=== PATIENT | male | born 1955 | race Caucasian/White ===

== ENCOUNTER → 2016-11-20 | Day surgery (SDC) | payer OTHER ==
[~2016-11-20] MED LIST: ASA PO; ASPIRIN EC81 M1 PO; BISA-LAX5 MG PO; DESYREL50 MG PO; DILT-XR240 M1 PO; ELIQUIS5 MG PO; IRON1 TAB PO; MS CONTIN100 MG PO; MSIR15 M1 PO; MULTI VITAMIN1 EACH PO; NAPROSYN-EC500 M1 PO; NEURONTIN600 MG PO; OMEPRAZOLE20 M1 PO; SIMVASTATIN PO; TOPROL XL100 MG PO; VIT B12; VITAL-D RX TABL1 TAB PO; VITAMIN B125000 MCG PO; ZOCOR20 MG PO
--- NOTE | ~2016-11-20 | OR ---
Unit #: [id number] #: [id number] Patient: JANIA SHANE [id number] [address] [place], [place] [address] [id number] O MR#: [id number] NAME: JANIA SHANE ROOM: Date of Procedure: 11/20/2016 Admission Date: 11/20/2016 Surgeon: Juan M Burnham M.D. : 1955 Attending Physician: Juan M Burnhma M.D. Primary Care Physician: Mian Jaime M.D. OPERATIVE REPORT JOB NOTE: CC: [facility] PREOPERATIVE DIAGNOSES Low back pain, lumbar facet disease. POSTOPERATIVE DIAGNOSES Low back pain, lumbar facet disease. PROCEDURE PERFORMED Bilateral L4-5 and L5-S1 facet injections with intravenous sedation and fluoroscopic guidance for needle localization. INDICATIONS FOR PROCEDURE The patient is a 61-year-old male with continued back pain felt to be due to lumbar facet disease. He failed to settle with rehabilitative medical management alone. Plan is for trial of diagnostic and hopefully therapeutic lumbar facet injections. DESCRIPTION OF PROCEDURE The patient was placed in a prone position. Standard monitors were applied. 2 mg of Versed were given for sedation and anxiolysis, which were adequate. Vital signs remained stable. Sterile prep and drape then of the lumbosacral area was performed. The skin overlying the right-sided L5-S1 and L4-5 facet joints localized with 1% lidocaine. A 22-gauge Quincke-point needle was advanced with fluoroscopic guidance to bring the needle tip to the edge of the right L4-5 and L5-S1 facet joints. After confirming this with fluoroscopy, a dose of 1 mL of mixture of 80 mg of Depo-Medrol and 4 mL of 0.125% bupivacaine were deposited. 0.5 mL in the joint, 0.5 mL just outside the joint. The same procedure was then repeated on the left at the L5-S1 and L4-5 levels. The same dose of medication was used after the needles were properly placed in the L4-5 and L5-S1 joints respectively using fluoroscopic guidance. The needles were all flushed and removed. The patient tolerated the procedure well. We pay attention how he feels during the day today due to the effect of the local anesthetic and then how he does longer term due to the effect of the corticosteroid. Dictated by... Juan M Burnham M.D. [facility] Unit #: [id number] #: [id number] Patient: JANIA SHANE TD: 11/20/2016 23:07 JOB #: [id number] OPERATIVE REPORT X Juan M Burnham MD X PROCEDURE OPERATIVE NOTE
== END | disposition home or self-care (01) ==
LOC: CCSC 10:20
DX: M47.26 Other spondylosis with radiculopathy, lumbar region (principal); K21.9 Gastro-esophageal reflux disease without esophagitis; D64.9 Anemia, unspecified
CPT/HCPCS: J1040; J2250